=== PATIENT | female | born 1995 | race Caucasian/White ===

== ENCOUNTER 2017-11-21 13:17 | Emergency (ER) | payer OTHER ==
[2017-11-21 14:03] VITALS: BP 113/70
--- NOTE | 2017-11-21 14:16 | UC ---
Eye Complaint HPI - HPI Summary HPI Summary: bilateral itchy eyes x 2 hrs , pt. eat plant / flower from the ground and started to have allergic reaction with itchy eyes, eye redness itchy skin no wheezing , no throat pain or swelling, no sob or cough - History of Current Complaint Chief Complaint: UCAllergicReaction Stated Complaint: ITCHY EYES Time Seen by Provider: 11/21/17 14:05 Hx Obtained From: Patient Hx Last Menstrual Period: DOES NOT HAVE REG PERIODS, HAS A IUD ?: No Onset/Duration: Sudden Onset, Lasting Hours - 2, Still Present Timing: Constant Severity Initially: Moderate Severity Currently: Mild Pain Intensity: 0 Location of Injury: Conjunctiva Aggravating Factor(s): Nothing Alleviating Factor(s): Nothing Associated Signs And Symptoms: Positive: Drainage (Clear). Negative: Photophobia, Drainage (Purulent), Vision Impairment Bilateral, Vision Impairment Right, Vision Impairment Left, Fever, Swelling - Allergies/Home Medications Allergies/Adverse Reactions: Allergies Allergy/AdvReac Type Severity Reaction Status Date / Time lamotrigine [From Lamictal] Allergy Unknown Rash Verified 11/21/17 13:56 lithium Allergy Unknown Hives Verified 11/21/17 13:56 Home Medications: Home Medications Levonorgestrel (Iud) [Mirena IUD] 20 mcg IU 11/21/17 [History] Spironolactone TAB* [Aldactone TAB*] 25 mg PO DAILY 11/21/17 [History Confirmed 11/21/17] diPHENhydraMINE PO* [Benadryl PO 25 MG TAB*] 25 mg PO Q6H PRN 11/21/17 [History Confirmed 11/21/17] PMH/Surg Hx/FS Hx/Imm Hx - Additional Past Medical History Additional PMH: ECDOMETRIOSIS PCOS - Surgical History Surgical History: Yes Surgery Procedure, Year, and Place: KNEE SURGERY TWICE. FOOT SURGERY. ADNOIDECTOMY. ENDOSCOPY - Family History Known Family History: Negative: Diabetes - Social History Alcohol Use: Weekly Substance Use Type: None Smoking Status (MU): Current Some Day Smoker Review of Systems Constitutional: Negative Skin: Negative Eyes: Drainage, Eye Redness ENT: Negative Respiratory: Negative Cardiovascular: Negative Gastrointestinal: Negative Genitourinary: Negative Is Patient Immunocompromised?: No All Other Systems Reviewed And Are Negative: Yes Physical Exam Triage Information Reviewed: Yes Appearance: Well-Appearing, No Pain Distress, Well-Nourished Vital Signs: Initial Vital Signs Temp 98.3 F 11/21/17 13:57 Pulse 104 11/21/17 13:57 Resp 16 11/21/17 13:57 BP 113/70 11/21/17 13:57 Pulse Ox 98 11/21/17 13:57 Vital Signs Reviewed: Yes Eye Exam: Normal Eyes: Positive: Conjunctiva Inflamed - bilateral, Discharge - clear discharge ENT: Positive: Normal ENT inspection, Hearing grossly normal, Pharynx normal Neck: Positive: Supple, Nontender, No Lymphadenopathy Respiratory: Positive: Chest non-tender, Lungs clear, Normal breath sounds, No respiratory distress Cardiovascular: Positive: No Murmur, Pulses Normal, Tachycardia Abdominal Exam: Normal Musculoskeletal Exam: Normal Neurological Exam: Normal Skin Exam: Normal Eye Complaint Course/Dx - Differential Dx/Diagnosis Provider Diagnoses: allergic conjunctivitis. food allergic reaction Discharge - Sign-Out/Discharge Documenting (check all that apply): Discharge/Admit/Transfer - Discharge Plan Condition: Stable Disposition: HOME Prescriptions: Tobramycin/Dexameth OPTH.SUSP* [Tobradex 0.3-0.1%*] 1 drop BOTH EYES Q4H #1 btl Patient Education Materials: General Allergic Reaction (ED), Conjunctivitis (ED ) Referrals: Non Staff,Doctor [Primary Care Provider] - If Needed Additional Instructions: allergic conjunctivitis cont. with Benadryl every 6 hrs as needed - Billing Disposition and Condition Condition: STABLE Disposition: Home
== END 2017-11-21 14:18 | disposition home or self-care (01) ==
LOC: UCCORT 13:17
DX: H10.13 Acute atopic conjunctivitis, bilateral (principal); T78.1XXA Other adverse food reactions, not elsewhere classified, initial encounter; X58.XXXA Exposure to other specified factors, initial encounter; F17.210 Nicotine dependence, cigarettes, uncomplicated; Z88.8 Allergy status to other drugs, medicaments and biological substances
CPT/HCPCS: 99202; G0463